=== PATIENT | female | born 1960 | race Caucasian/White ===

== ENCOUNTER → 2025-03-02 | Outpatient (CLI) | payer BC, MEDICARE, SELFPAY ==
--- NOTE | 2025-03-02 11:28 | CT_ITS ---
PROCEDURE: ABDOMEN/PELVIS WITHOUT CONT 03/02/2025 REASON FOR EXAM: CALCULUS OF KIDNEY TECHNIQUE: Procedure Code: CTABDPEL Modality: CT Procedure: ABDOMEN/PELVIS WITHOUT CONT Noncontrast technique limits evaluation of the abdominal and pelvic viscera. Coronal and Sagittal reconstruction series were provided. One or more dose reduction techniques were used (e.g., Automated exposure control, adjustment of the mA and/or kV according to patient size, use of iterative reconstruction technique). RADIATION DOSE SUMMARY: CTDlvol: 23.37 mGy DLP: 1290.29 mGycm COMPARISON: None available FINDINGS: Lung bases: Clear Liver: Normal size. No obvious mass. Gallbladder: Not well visualized. Spleen: Normal size. Pancreas: Normal size. No surrounding inflammation. Adrenals: Normal. Kidneys: No hydronephrosis. No solid mass. Multifocal nonobstructive nephrolithiasis noted in the left kidney lower pole calices. Bladder: Unremarkable Reproductive Organs: Fibroid uterus. A 2.2 cm left ovarian cyst is noted. Bowel: Colonic diverticulosis without diverticulitis. No small bowel obstruction. Appendix: The appendix is not identified. There is no inflammatory process identified in the right lower quadrant to suggest appendicitis. Lymph nodes: Unremarkable. Vasculature: The abdominal aorta and IVC contours are normal. Noncontrast technique limits evaluation. Peritoneum / Retroperitoneum: No significant free air or free fluid. Bones: Degenerative changes of the spine. CT/Abdomen/Pelvis without Cont IMPRESSION: Nonobstructive nephrolithiasis are noted in the left kidney lower pole. No hyd ronephrosis. A cystic lesion measuring up to 2.3 cm noted in the left ovary, given patient's postmenopausal, recommend further evaluation with transvaginal ultrasound. Nonvisualization of gallbladder, recommend clinical correlation with history of cholecystectomy. Reading Location: [facility]
== END | disposition home or self-care (01) ==
PROVIDERS: PCP Family Medicine; Referring Provider Urology; Visit Provider Urology
DX: N20.0 Calculus of kidney (principal)
CPT/HCPCS: 74176